=== PATIENT | male | born 1985 | race Caucasian/White ===

== ENCOUNTER 2025-08-10 09:24 | Outpatient (OUT) | payer BC, SELFPAY ==
--- OUTSIDE RECORDS SUMMARY | 2025-08-07 11:30 | XMS_ITS ---
Author Organization [facility] in [place] Address [address] [place] [address] Care Team Providers Care Equal Opportunity Counselor Name Role Phone Paul Arguello Primary Care Provider Allergies No Known Allergies REASON FOR VISIT Nausea, Shaky, No Appetite, Weight Loss Medications Medication SIG (Take, Route, Frequency, Duration) Notes Start Date End Date Status Viagra 100 MG 1 tablet as needed 0 30 min before intercourse Orally Once a day; Duration: 30 days 5Active Social History Tobacco Use: Social History Observation Description Date Details (start date - stop date) Never Smoker NA - NA Tobacco Control (Standard) Question Answer Notes Tobacco use: Nonsmoker AUDIT-C (Standard) Question Answer Notes Did you have a drink containing alcohol in the p ast year? No Teftqa2AyzfrbxaqwpxoaVdnuzoxl Vital Signs Weight 220.0 lbs 08/07/2025 Height 69 in 08/07/2025 BMI 32.48 kg/m2 08/07/2025 Encounters Encounter Location Date Provider Diagnosis [facility] [address] [place] [address] 08/07/2025 Paul Arguello Palpitation R00.2 ; Nausea R11.0 and Well adult Z00.00 Assessments Encounter Date Diagnosis (ICD Code) Assessment Notes Treatment Notes Treatment Clinical Notes Section Notes 08/07/2025 Palpitation (ICD-10 - R00.2) 08/07/2025Nausea (ICD-10 - R11.0)08/07/2025Well adult (ICD-10 - Z00.00) Plan Of Treatment Medication Medication Name Sig Start Date Stop Date Notes Viagra 100 MG 1 tablet as needed 0 30 min before intercourse Orally Once a day; Duration: 30 days 08/07/2025 Pending Test Test Name Order Date HEMOGLOBIN A1C (GLYCO) 08/07/2025 INSULIN, TOTAL 08/07/2025 THYROID PANEL (T4/TSH/FREE T3) CMP (COMP MET STANLEY) w/eGFR CKD-EPI 2024 CBC WITH DIFF 08/07/2025 Progress Notes * Arslan KENYONyDOB:1985 (40 yo M)Acc No.[id number]:08/07/2025 UNLOCKED PROGRESS NOTE Progress Note Patient: Abraham RECIO :?Jairo Arguello ([facility]), MDDOB:1985???Age: 40 Y???Sex:MaleDate:08/07/2025Phone:[phone]:[address] [place], [id number] In:04:23 PM ESTCheck Out:05:15 PM EST Subjective: * Chief Complaints: * 1 . Nausea, Shaky, No Appetite, Weight Loss. * HPI: ???General:? nausea shaking -? impotence? - X1 some stress - new? career. * ROS: ???EENT:?hearing changes?denies.?visual changes?denies. non-healing mouth sores?denies.?swollen glands or neck lumps?denies.?hoarseness?denies.?sore throat?denies.?difficulty swallowing?denies.?nose bleeds?denies.?nasal congestion?denies.?ear ache?denies.?ear discharge denies.?ringing in ears?denies.?light sensitivity?denies.?eye pain?denies.?blurring?denies.?eye irritation?denies.?double vision?denies. vision loss?denies.?General/Constitutional:?Sweats:?Denies.?Fatigue?denies.?Sleep proble ms?denies.?Anorexia?denies.?Malaise?denies.?Weight loss?denies. Fatigue or Weakness?denies.?Fever or Chills?denies.?Cardiovascular:?Shortness of Breath w/lying flat?denies.?Lightheadedne ss/dizziness?denies.?Chest tightness/ heavy pressure?denies.?Swelling of legs, a nkles, or feet?denies.?Waking up with shortness of breath?denies.?Chest pain&#16 0;denies.?Palpitations?denies.?Weight gain?denies.?Respiratory:?Chronic or frequent cough?denies.?Coughing up blood&#1 60;denies.?Difficulty breathing?denies.?Productive cough?denies.?Snoring&#1 60;denies.?Shortness of breath that awakens from sleep (PND)?denies.?Chest pain? denies.?Sputum production?denies.?Wheezing?denies.?Musculoskeletal:?Joint pain?denies.?Joint Fluid?denies.?Backpain?denies.?Knee pain?denies.?Neck pain?denies.?Joint Stiffness?denies.?Muscle cramps?denies.?Weakness of muscles?denies.?Arthritis?denies.?Muscle aches?denies.?Pain in shoulder(s)?denies.?Swollen joints?denies.? * Medical History: M edical History Verified. * Surgical History: B icep Repair . * Hospitalization/Major Diagno stic Procedure: D enies Past Hospitalization. * Family History: F ather: alive. M other: alive. B rother(s): alive, diagnosed with Diabetes. S ister(s): alive. S on(s): alive. Gayla scherer(s): alive. * Social History: ???Tobacco Use:?Tobacco Control (Standard)?Tobacco use:?Nonsmoker ???Drug/Alcohol:?AUDIT-C (Standard)?Did you have a drink containing alcohol in the past year??No ?Points?0 ?Interpretation?Negative * Medications: N one * Allergies: N .K.D.A. Objective: * Vitals: W t:220.0lbs, Ht: 69 in, BMI:32.48Index, Ht-cm: 175.26 cm, Wt-k.79 kg. * Examination: ???Physical Exam: ?GENERAL:?well developed, well nourished, in no acute distress.?HEAD:?normocephalic/atraumatic.?EYES:?pupils equal, round and reactive to light, conjunctivae and sclerae normal.?EARS:?no deformity or lesion of external ear, canals and TM appear normal bilaterally, TM's intact, not inflamed with normal light reflex, hearing grossly normal to conversational speech.?NOSE:?no deformity, discharge, inflammation, or lesions. ?MOUTH:?mucous membranes moist, normal oropharynx and posterior pharynx without lesions or exudates, tongue normal, dentition normal.?NECK:?neck supple, no masses or palpable cervical nodes, trachea midline, thyroid without nodules, masses, tenderness, or enlargement.?CHEST:?no chest wall deformity, no chest wall tenderness. ?LUNGS:?normal respiratory effort and clear to auscultation, no wheezes, rales, or rhonchi, good air exchange.?CARDIO:?regular rate and rhythm, normal S1 and S2, nor murmur, rub, or gallop.?PULSES:?normal capillary refill.?ABDOMEN:?soft, non-distended, non-tender, no masses.?MUSCULOSKELETAL:?no deformity or scoliosis noted, normal range of motion, joints normal, no erythema, edema, effusion, or ecchymosis.?EXTREMITY:?no clubbing, cyanosis, edema, or deformity withnormal ROM in both upper and lower bilateral extremities.?NEUROLOGIC:?grossly normal.?SKIN:?no rashes, ulcerations, or suspicious lesions.?LYMPH NODES:?no cervical adenopathy, nodes normal.?MENTAL STATUS:?alert and oriented x3, normal mood and affect.? Assessment: * Assessment: 1.?Palpitation - R00.2 (Primary)???2.?Nausea - R11.0???3. Well adult - Z00.00??? Plan: * Treatment: Start Viagra Tablet, 100 MG, 1 tablet as needed 0 30 min before intercourse, Orally, Once a day, 30days, 10, Refills 11.?LAB: HEMOGLOBIN A1C (GLYCO) ?LAB: INSULIN, TOTAL ?LAB: THYROID PANEL (T4/TSH/FREE T3) ?LAB: CMP (COMP MET STANLEY) w/eGFR CKD-EPI ?LAB: CBC WITH DIFF * * Electronic signature of Paul Arguello MD, [id number] on 08/10/2025 at 09:30 AM EST Sign off status: PendingVisit Status:?CHK (Check Out) * Provider: Gayla Arguello ([facility])MD Date: 10/07/2024 Generated for Printing/Faxing/eTransmitting on:?08/10/2025 09:30 AM EST History and Physical Notes * HPI (History of Present Illness) CategorySub-CategoryDetailNotesCategory NotesGeneral nausea shaking - impotence - X1 some stress - new career Examination CategorySub-CategoryDetailNotesCategory NotesPhysical ExamGENERAL:well developed, well nourished, in no acute distressHEAD:normocephalic/atraumatic EYES:pupils equal, round and reactive to light, conjunctivae and sclerae normal EARS:no deformity or lesion of external ear, canals and TM appear normal bilaterally, TM's intact, not inflamed with normal light reflex, hearing grossly normal to conversational speechNOSE:no deformity, discharge, inflammation, or lesionsMOUTH:mucous membranes moist, normal oropharynx and posterior pharynx without lesions or exudates, tonguenormal, dentition normalNECK:neck supple, no masses or palpable cervical nodes, trachea midline, thyroid without nodules, masses, tenderness, or enlargementCHEST:no chest wall deformity, no chest wall tendernessLUNGS:normal respiratory effort and clear to auscultation, no wheezes, rales, or rhonchi, good air exchangeCARDIO:regular rate and rhythm, normal S1 and S2, nor murmur, rub, or gallopPULSES:normal capillary refillABDOMEN:soft, non-distended, non-tender, no massesRECTAL:MUSCULOSKELETAL:no deformity or scoliosis noted, normal range of motion, joints normal, no erythema, edema, effusion, or ecchymosisEXTREMITY:no clubbing, cyanosis, edema, or deformity with normal ROM in both upper and lower bilateral extremitiesNEUROLOGIC:grossly normalSKIN:no rashes, ulcerations, or suspicious lesionsLYMPH NODES:no cervical adenopathy, nodes normalMENTAL STATUS:alert and oriented x3, normal mood and affect
--- OUTSIDE RECORDS SUMMARY | 2025-08-10 09:31 | XMS_ITS | Patient Health Record ---
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 No Fujufk2QuposrvverlgoqCihvqgim Problems Problem Type SNOMED Code ICD Code Onset Dates Problem Status W/U Status Risk Notes Problem Well adult (170083770) Well adult (Z00.00 ) Activeconfirmed Vital Signs Blood pressure diastolic 80 mm Hg 06/05/2025 Tztrve49 in08/07/2025lood pressure jdugwgem797 mm Hg06/05/20255268Qyskab617.0 lbs 08/07/2025BMI32.48 kg/m208/07/2025 Encounters Encounter Location Date Provider Diagnosis [facility] [address] [place] [address] 06/05/2025 Paul Hoy Well adult Z00.00 [facility] [address] [place] [address] 08/07/2025 Paul Arguello Palpitation R00.2 ; Nausea R11.0 and Well adult Z00.00 Assessments Encounter Date Diagnosis (ICD Code) Assessment Notes Treatment Notes Treatment Clinical Notes Section Notes 06/05/2025 Well adult (ICD-10 - Z00.00) Likely need sleep study - jody chen back about that08/07/2025Palpitation (ICD-10 - R00.2)08/07/2025Nausea (ICD-10 - R11.0)08/07/2025Well adult (ICD-10 - Z00.00) Plan Of Treatment Pending Test Test Name Order Date HEMOGLOBIN A1C (GLYCO) 08/07/2025 INSULIN, TOTAL 08/07/2025 THYROID PANEL (T4/TSH/FREE T3) CMP (COMP MET STANLEY) w/eGFR CKD-EPI 2024 CBC WITH DIFF 08/07/2025 Insurance Providers Payer Name Payer Address Payer Phone Subscriber Number Group Number Insured Name Patient Relationship to Insured Coverage Start Date Coverage End Date [employer] PPO PLUS LOCAL PLAN [address] [place] [address] [id number] Prudencio Kenyonelf - patient is the insured Medical (General) History Surgical History Surgery Date(Month/Year) Bicep Repair
--- OUTSIDE RECORDS SUMMARY | 2025-08-10 09:31 | XMS_ITS | Clinical Summary ---
Author Organization [facility] Address [address] [place] [address] Care Team Providers Care On Call Pharmacy Technician Name Role Phone Unavailable Primary Care Provider Unavailabl e Allergies Active AllergyReactionsCriticalityNoted DateCommentsAmoxicillin-Pot Clavulanate GI ixqfhlvsfbv85/14/2024 Medications MedicationSigDispense QuantityRefillsLast FilledStart DateEnd DateStatus fexofenadine (Ale) 180 MG tablet Indications:Rash and other nonspecific skin eruptionTake 1 tablet (180 mg) by mouth Daily 30 tablet 4Active fluocinonide (Lidex) 0.05 % ointment Indications:Other atopic dermatitisApply to affected areas, up to twice a day when flared, do not use one the face, groin, or underarms, 30 day supply 60 g 5Active hydrocortisone 2.5 % cream Indications:Other atopic dermatitisApply topically 2 (two) times a day as needed (Rash) Apply thin layer to affected areas of face andgroin bid prn for flares 60 g 5Active Active Problems No known active problems Social History Tobacco UseTypesPacks/DayYears UsedDateSmoking Tobacco: NeverSmokeless Tobacco: Never Tobacco Cessation:Counseling Given: Not Answered Alcohol UseStandard Drinks/WeekCommentsNot Currently0 (1 standard drink = 0.6 oz pure alcohol)Sex and Gender InformationValueDate RecordedSex Assigned at Not on fileLegal VqqQttu7912/01/2022 7:01 PM EDTGender IdentityNot on fileSexual OrientationNot on file Last Filed Vital Signs Vital SignReadingTime TakenCommentsBlood Elsruxwp596/8411/29/2021 12:00 PM EDT Pulse--Temperature--Respiratory Rate--Oxygen Saturation--Inhaled Oxygen Concentration--Pielzv81.3 kg (210 lb)02/01/2023 12:00 PM EJAZesfnh403.7 cm (5' 8 )02/01/2023 12:00 PM EDTBody Mass Index31.9302/01/2023 12:00 PM EDT Plan of Treatment Not on file Insurance
[2025-08-10 10:14] LABS: Hematocrit 48.6 % (42.0-54.0); Hemoglobin 16.7 g/dL (14.0-18.0); Immature Granulocytes Abs Auto 0.01 10^3/uL (0.00-0.03); Immature Granulocytes Pct Auto 0.2 % (0.0-0.5); Lymphocytes Absolute Auto 1.2 10^3/uL (1.2-3.8); Mean Corpuscular HGB Conc 34.4 g/dL (29.9-35.2); Mean Corpuscular Hemoglobin 29.7 pg (25.9-34.0); Mean Corpuscular Volume 86.3 fL (80.0-94.0); Platelet Count 299 10^3/uL (150-450); Red Blood Count 5.63 10^6/uL (4.70-6.10); White Blood Count 6.1 10^3/uL (4.0-11.0)
[2025-08-10 11:07] LABS: Alanine Aminotransferase 40 U/L (16-63); Albumin Globulin Ratio 1.4; Albumin Level 4.0 g/dL (3.4-5.0); Alkaline Phosphatase 60 U/L (46-116); Anion Gap 12.2; Aspartate Amino Transferase 21 U/L (15-37); Blood Urea Nitrogen 14.0 mg/dL (7.0-18.0); Calcium 8.9 mg/dL (8.5-10.1); Carbon Dioxide 28.2 mmol/L (21.0-32.0); Chloride 105 mmol/L (98-107); Estimated GFR (African America >60 (>=60 mL/min/1.73m^2); Estimated GFR (Non-African Ame >60 (>=60 mL/min/1.73m^2); Free T3 2.84 pg/mL (2.18-3.98); Globulin 2.8 g/dL; Glucose 109 mg/dL (74-106); Potassium 3.4 mmol/L (3.5-5.1); Sodium 142 mmol/L (136-145); Thyroid Stimulating Hormone 1.675 uIU/mL (0.358-3.740); Total Protein 6.8 g/dL (6.4-8.2)
== END 2025-08-10 09:25 | disposition home or self-care (01) ==
LOC: LAB 09:28
PROVIDERS: PCP Family Medicine; Visit Provider Family Medicine
DX: Z00.00 Encounter for general adult medical examination without abnormal findings (principal)
CPT/HCPCS: 36415; 80053; 83036; 83525; 84436; 84443; 84481; 85025